=== PATIENT | female | born 1990 | race Hispanic/Latino ===

== ENCOUNTER 2017-03-18 11:42 | Emergency (ER) | payer OTHER ==
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
[2017-03-18 11:53] VITALS: BP 118/81
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
[2017-03-18] MEDS ORDERED: TORADOL IM ONE (12:31)
[2017-03-18] MEDS ORDERED: DECADRON IM STA (12:32)
--- NOTE | 2017-03-18 13:07 | XRay Report ---
LUMBOSACRAL SPINE, 3 VIEWS: History: Back pain Findings: The vertebral bodies, disk spaces and posterior elements are intact. No compression deformity or malalignment. The SI joints are symmetric and unremarkable. Impression: 1. No evidence for acute injury to the lumbar spine.
== END 2017-03-18 14:15 | disposition home or self-care (01) ==
LOC: ED 11:42
DX: M54.5 Low back pain (principal); G89.29 Other chronic pain; F17.200 Nicotine dependence, unspecified, uncomplicated; W18.30XA Fall on same level, unspecified, initial encounter; Y93.89 Activity, other specified; Y99.8 Other external cause status; Y92.009 Unspecified place in unspecified non-institutional (private) residence as the place of occurrence of the external cause
CPT/HCPCS: 72100; 96372; 99283; J1100; J1885